=== PATIENT | female | born 1965 | race Hispanic/Latino ===

== ENCOUNTER → 2024-08-24 | Outpatient (CLI) | payer OTHER ==
--- NOTE | 2024-08-24 15:05 | HMCIMG ---
BONE DENSITOMETRY: HISTORY: AGE-RELATED OSTEOPOROSIS W/O CURRENT PATHOLOGICAL FX COMPARISON: None available FINDINGS: BMD measured at AP spine L1-L4 is 0.780 g/cm2 with a T-score of -2.4 Bone density is between 10 and 25% below young normal. This patient is considered osteopenic. Fracture risk is moderate. BMD measured at Left Femoral Neck is 0.723 g/cm2 with a T-score of -1.3 Bone density is between 10 and 25% below young normal. This patient is considered osteopenic. Fracture risk is moderate. BMD measured at Left Femoral Total is 0.820 g/cm2 with a T-score of -1.1 Bone density is between 10 and 25% below young normal. This patient is considered osteopenic. Fracture risk is moderate. IMPRESSION: Osteopenia, moderate fracture risk.
--- NOTE | 2024-08-26 12:15 | HMCIMG ---
MAMMO SCREENING BILATERAL HISTORY: Screening mammogram. COMPARISON: 08/26/2023 TECHNIQUE: Bilateral screening mammogram with CAD was performed with craniocaudal and mediolateral oblique projections. FINDINGS: The breasts are heterogeneous dense, which may obscure small masses. Asymmetric breast densities are seen in the upper outer quadrant of the left breast unchanged. There is no evidence of a dominant mass, or suspicious microcalcification. There is no evidence of nipple retraction or skin thickening. IMPRESSION: 1. Stable mammogram. Patient was entered into a reminder system with a target due date for their next mammogram. BI-RADS: CATEGORY 2: BENIGN FINDINGS Recommend monthly self breast exam as well as annual clinical examination. A negative x-ray should not delay biopsy if a dominant or clinically suspicious mass is present, since 8-10% of cancers are not identified by mammography. Dense breasts particularly, may obscure an underlying neoplasm. Some of these may be detected clinically and therefore, clinical examination is an essential part of breast evaluation.
== END | disposition home or self-care (01) ==
LOC: RAH 10:57
PROVIDERS: ATTEND Internal Medicine
DX: Z12.31 Encounter for screening mammogram for malignant neoplasm of breast (principal); M81.0 Age-related osteoporosis without current pathological fracture
CPT/HCPCS: 77067; 77080

== ENCOUNTER → 2025-03-17 | Outpatient (CLI) | payer OTHER ==
--- NOTE | 2025-03-17 09:53 | HMCIMG ---
EXAM: US Abdomen complete CLINICAL HISTORY: Generalized abdominal pain TECHNIQUE: Real-time ultrasound of the abdomen (complete) with image documentation. COMPARISON: None provided. FINDINGS: LIVER: The liver is fatty. GALLBLADDER: The gallbladder is normal in appearance. No gallstone or wall thickening. COMMON BILE DUCT: No dilation. PANCREAS: Unremarkable where visualized. The distal pancreas is obscured by overlying bowel gas. KIDNEYS: Normal renal contours. No renal mass or calculus. No hydronephrosis. SPLEEN: Normal in size and echogenicity. No mass identified. AORTA: No aneurysm. IVC: Unremarkable as visualized. MISCELLANEOUS: No other significant findings identified. IMPRESSION: 1. Fatty liver. /Kashif
== END | disposition home or self-care (01) ==
LOC: RAH 08:13
PROVIDERS: ATTEND Internal Medicine
DX: K76.0 Fatty (change of) liver, not elsewhere classified (principal); R10.84 Generalized abdominal pain
CPT/HCPCS: 76700